=== PATIENT | male | born 1940 | race Caucasian/White ===

== ENCOUNTER → 2021-07-20 09:40 | Outpatient (CLI) | payer MEDICARE, SELFPAY ==
[2021-07-20 11:43] LABS: COVID19 -Nasal RAPID Negative (Negative)
== END ==
PROVIDERS: PCP Nurse Practitioner; Visit Provider Physician Assistant
DX: Z20.822 Contact with and (suspected) exposure to COVID-19 (principal)
CPT/HCPCS: 87635; C9803

== ENCOUNTER 2021-07-23 05:37 | Day surgery (SDC) | payer MEDICARE, OTHER, SELFPAY ==
[2021-07-16 09:37] VITALS: BMI 29.5
[2021-07-23] VITALS (13 sets, daily range): BP systolic 118–178; BP diastolic 71–107; PULSE 66–105; RESP 12–20; TEMP 35.9–36.5; O2SAT 91–98; BMI 29.4
--- NOTE | 2021-07-23 06:45 | DI.RAD.S_ITS ---
PROCEDURE: XR KNEE LT 1TO2V INDICATIONS: postop prosthesis placement TECHNIQUE: 2 view(s) of the knee acquired. COMPARISON: None. FINDINGS: Bones: Patient is status post knee joint arthroplasty. Hardware components are in expected positions. Visualized bony structures are intact. Soft tissues: Overlying postoperative changes are noted. IMPRESSION: Expected postsurgical change for left knee arthroplasty. Dictated by: Latanya Dillard MD, PhD on 07/23/2021 at 11:31 Approved by: Latanya Dillard MD, PhD on 07/23/2021 at 11:32
[2021-07-23] MEDS: LACTATED RINGERS 1,000 ML 42 ML IV ×2 (07:05→09:15)
[2021-07-23] MEDS: ACETAMINOPHEN 325 MG TABLET 975 MG PO (07:14)
[2021-07-23] MEDS: CELECOXIB 200 MG CAPSULE PO (07:14)
[2021-07-23] MEDS: PREGABALIN 75 MG CAPSULE PO (07:14)
--- NOTE | 2021-07-23 07:23 | SUR.PREOP ---
Informed Dr. Gentile and showed him patients sores and he said that he can have his surgery anyway.
--- NOTE | 2021-07-23 07:27 | P.OP_ITS ---
Operative Date/Time/Diagnoses Date of procedure: 07/23/21 Time of procedure: 09:38 Pre-op diagnosis: Left knee osteoarthritis Post-op diagnosis: same Procedure & Clinicians Procedure: Left total knee replacement Same procedure as scheduled: Yes Indications: The patient has had progressively worsening left knee pain with radiographic changes consistent with arthritis. Non-operative management has failed and the patient has requested total knee replacement. The risks, benefits and alternatives to surgery were discussed with the patient prior to proceeding. Risks discussed included, but were not limited to, failure to relieve pain, stiffness, infection, nerve damage, deep venous thrombosis, pulmonary embolism, stroke, coma, heart attack, permanent paralysis and , as well as the potential need for eventual revision of the prosthetic. Surgeon: Travis Gentile Electrical Maintenance Mechanic: Nia Narayanan Click Yes if Unassisted: No Anesthesia Type: General, Spinal and Local Operative Notes Findings: Severe medial and moderate patellofemoral osteoarthritis with relative preservation of the lateral compartment. Closure Type: primary Specimen(s): none sent Prosthetic devices, grafts, tissues, transplants, or devices: Implants used in this procedure were manufactured by the [employer] and [email or web address] and included the BCS II Journey total knee replacement with a size 7 cobalt chromium femur, size 7 non porous tibial base plate. A 9 mm cross-linked polyethylene tibial insert and a 41 mm oval Tayler II patella. Applied: implant(s) Estimated Blood Loss (mL): 25 Blood products transfused: none Tourniquet time (min): 50 Procedure in detail: The patient was seen in the pre-operative area, where the left knee was identified as the operative site and this was marked with my initials. The patient received pre-operative antibiotics, and was taken to the operating room and placed on the operative table in the supine position. After satisfactory anesthesia, a oil expeller out was performed. The left leg was encircled with a tourniquet about the proximal thigh, and the leg was prepared from the toes to the tourniquet with ChloroPrep in the usual fashion and draped through sterile drapes. The leg was elevated and exsanguinated with Eschmark bandage and the tourniquet inflated to 250 mmHg pressure. The knee was approached through an approximately 18 cm incision centered over the patella and carried into the knee through a medial parapatellar arthrotomy. The anterior osteophytes and soft tissues were removed. The rotational landmarks of [place]'s line and the transepicondylar axis were marked on the femur with electrocautery, and intramedullary guide holes for the femur and tibia were created. The distal femoral cut was made in 6 degrees of valgus using the intramedullary guide at +1 cut setting due to a mild preoperative flexion contracture. The proximal tibial cut was then made using the intramedullary guide, taking 9 mm of bone off the less involved side. The extension gap was checked and the rotation of the femoral component confirmed with the gap balancing blocks. The anterior, posterior and chamfer cuts were then made. The posterior osteophytes and soft tissues were then removed. The posterior capsule was injected with part of a mixture of 60 ml 0.25% Marcaine mixed with 20 ml Exparel and 4 mg of morphine for post-operative pain control. The remainder of this mixture was injected into the capsule and subcutaneous tissues during cement curing. The tibia was prepared with the rotation set by an extra medullary guide. Trial tibial and femoral components were then placed and the intercondylar notch cut through the femoral trial. Range of motion was 0-135 degrees, with good stability throughout the range. The patella was then cut to accommodate the patellar prosthetic. There was no need for a lateral release. The trials were then removed, and the femoral hole plugged with a bone plug. The bone was prepared with pulsatile lavage, and dried with a sponge. Cement was applied and the final prosthetics placed. Excess cement was removed during and after cement curing. After confirming there was no extruded cement posteriorly, the final tibial insert was placed. The knee was copiously irrigated and the tourniquet deflated. Hemostasis was obtained. The capsule was closed with interrupted # 2 polyester sutures. The subcutaneous layer was closed with 3-0 Vicryl, and the skin with a running 3-0 V-Lock suture and Dermabond. An Aquacel Ag dressing was applied and the patient was taken to recovery having tolerated the procedure well. Complications: none Post-operative Condition: stable Disposition: PACU Plan for aftercare: The patient will be maintained on a standard total knee replacement protocol with weight bearing as tolerated. The patient will receive aspirin and sequential compression devices for DVT prophylaxis. The patient will be discharged home when safe for the home environment.
--- NOTE | 2021-07-23 07:27 | PM.PREOP ---
Pre-operative Note COVID-19 COVID-19 status: Negative Result date/Date tested (Pos, Neg/Pending): 07/20/21 Interval Note History & Physical reviewed/Exam performed by Physician: Yes Changes to H&P: No
[2021-07-23] MEDS: CEFAZOLIN 1 GM VIAL 2 GM IV (08:09)
[2021-07-23] MEDS: TRANEXAMIC ACID 1,000 MG VIAL 1000 MG INJ ×2 (08:15→09:12)
--- NOTE | 2021-07-23 08:23 | SUR.OPER ---
Supine on padded OR bed. Pillow under head, arms secured on padded armboards <90 degree abduction. Safety belt across torso. Non-operative leg secured with tape over blanket over lower leg. Operative leg secured in [place] positioner.
[2021-07-23] MEDS: BUPIVACAINE 0.25% (PF) 60 ML, EPINEPHrine 0.3 MG INJ (08:34)
[2021-07-23] MEDS: BUPIVACAINE LIPOSOME 266 MG/20 ML VIAL INJ (08:34)
[2021-07-23] MEDS: MORPHINE 4 MG/ML INJ INJ (08:35)
--- NOTE | 2021-07-23 10:36 | SUR.PHASEI ---
Pt from OR at 0948 in bed after general spinal anesth. breathing unassisted. Placed on 1L NC for O2 sat 91%. SBAR report at bedside from Rn and Dr Daley. Pt transferred to room 215 awake, alert, denying pain and nausea, able to wiggle toes and. Bed in low position. Call light in reach. SBAR report to Erika FAITH.
[2021-07-23] MEDS: OXYCODONE IR 10 MG TABLET PO ×2 (11:39→15:48)
[2021-07-23] MEDS: LACTATED RINGERS 1,000 ML 100 ML IV (11:41)
--- NOTE | 2021-07-23 14:53 | PT.IIE ---
Current Diagnoses Unilateral primary osteoarthritis, left knee (07/23/21) Surgery Performed Operation Date: 07/23/21 07:45 Actual Procedures p Total Knee Arthroplasty(Left) - Travis Gentile MD Medical History (Last Updated 07/16/21 @ 09:48 by Claudia Sanchez RN) Actinic keratosis BPH (benign prostatic hyperplasia) Diverticulosis Former smoker Headache, migraine [place] (hard of hearing) Osteoarthritis Physical Therapy Inpatient Evaluation/Re-Eval M1 PT/OT-IP Prior Functional Status Start: 07/23/21 13:01 Freq: NEEDED Status: Discharge Protocol: Document 07/23/21 14:53 JG (Rec: 07/23/21 15:58 JG [id number]) Medical Review Prior Functional Status Medical History Reviewed Yes Diet/Fluid Consistency Regular Communication No limitations noted Mobility and Gait Medical reports note L knee pain during amb, transfers, functional movement. Pt reports he does not use any AD for home or community amb. Activities of Daily Living and IADL's No limitations noted Social History Household Members spouse Living Arrangements House Number of Floors (Floors) One Floor Number of Stairs To Enter/Railing? 5 stairs w/narrow bilateral rail or 2 stairs w/o rail to enter/exit house. 15 stairs w/ R rail to access basement and doesn't need to go to basement . Home Environment Standard Height Toilet,Tub/ Shower Home Equipment Four Wheel Walker,Hand Held Shower Employment Status Retired Additional Social History Comment Pt reports OP PT is scheduled. Pt's is able to provide care during recovery. M2 PT-IP Current Condition Start: 07/23/21 13:01 Freq: NEEDED Status: Discharge Protocol: Document 07/23/21 14:53 JG (Rec: 07/23/21 15:55 JG [id number]) Physical Therapy Current Condition Current Condition Evaluation Date 07/23/21 Treatment Diagnosis S/P L TKA, difficulty walking and transferring Onset Date 07/23/21 M3 PT-IP Subjective Start: 07/23/21 13:01 Freq: NEEDED Status: Discharge Protocol: Document 07/23/21 14:53 JG (Rec: 07/23/21 15:55 JG [id number]) Subjective Physical Therapy Visit Type Type Initial Evaluation Visit Start Time 14:04 Visit Stop Time 14:53 Total Visit Minutes 49 Notes SPT Jasmin was directly supervised by PT Faye Number of NUT ROASTER HELPER Visits 0 Physical Therapy Visit Comments Patient Comments Pt reports that he feels even better post-surgery compared to R TKA several years ago. Pt demostrated L knee ROM w/o PT prompt and denied pain at rest or with movement. Pt states that he would prefer to go home this afternoon or evening instead of staying overnight and his surgeron booked him for the earliest surgery timeslot to increase the chance of pt returning home same day. Pt's was in room upon arrival and participated in caregiver training re stair amb, ADL assist, pain management, FWW and 4WW. Pt reports he has 4WW at home, but has the means to obtain FWW if needed. Pt reports he liked amb with FWW compared to 4WW. Patient Goals Return home ROGEL[place], heal in 5 weeks compared to 6 for R TKA , amb w/o pain or AD Therapy Pain Assessment Pain Present Pain Present Denied Pain Location L knee Intensity 0 Scale Used pt denied pain at rest, AROM, amb, stairs, transfers M4 PT-IP Mobility and Gait Start: 07/23/21 13:01 Freq: NEEDED Status: Discharge Protocol: Document 07/23/21 14:53 J (Rec: 07/23/21 15:55 J [id number]) PT-Bed Mobility Assessment Rolling Type of Rolling Roll to Right Level of Assist Standby Assistance Supine to Sit Supine to Sit Standby Assistance,Bedrails PT-Transfer Assessment Sit to and From Stand Sit to and from Stand Contact Guard Assistance,1 Person Assistance,Use of Upper Extremities Equipment Transfer Assistive Device Gait Belt,Front Wheeled Walker ,4 Wheeled Walker Orthotic/Prosthetic Devices or Brace: No Transfers Transfer Destination Bed,Chair,Toilet Transfer Technique Stand Step Pivot Transfer Ability Level of Assist Contact Guard Assistance,1 Person Assistance,Use of Upper Extremities Comments Mobility Comments Pt successfully completed sit> stand CGA w/FWW on first attempt from EOB. Pt amb bed> toilet where he voided while in standing CGA w/FWW over toilet. Pt amb from toilet around room CGA w/FWW. Pt stand>sit to bedside chair CGA w/FWW. At this point, pt expressed desire to go home this afternoon or evening. Because of this, stair amb was determined to be important observation and training. Pt amb bedside chair>therapeutic stairs>3x3 6 inch stairs bilat rail step-to w/o FWW> therapeutic stairs>bedside chair CGA w/FWW and w/c follow . No rest in w/c was needed. 4WW was obtained and pt amb bedside chair>hallway>bedside chair CGA w/4WW. Gait Assessment Gait Gait Assistance Required: Contact Guard Assist,1 Person Assist Distance (Feet) 360 Able to Maintain Weight Bearing Status Yes During Gait Assistive Devices Assistive Device Gait Belt,Front Wheeled Walker ,4 Wheeled Walker Orthotic/Prosthetic Devices or Brace: No Gait Deviations General Gait Pattern Decreased Stride Length,Step- to Gait Comments Gait Comments See mobility comments. Mild decreased stride length. Step- to gait on stairs only. Stair Climbing Assessment Evaluation Level of Assist On Stairs Contact Guard Assistance Devices Stair Climbing Assistive Devices None,Left Railing,Right Railing Technique/Endurance Stair Climbing Direction Ascend and Descend Stair Climbing Technique Step to Step Number of Steps Climbed 3 Query Text: Stair Climbing Set # Repetitions (reps) 3 Comments Stair Climbing Comments 3x3 6-inch steps ascend/ descend on therapeutic stairs PT-Balance Assessment Sitting Balance and Reactions Static Sitting Balance Ability Normal Standing Balance and Reactions Static Standing Balance Ability Good Dynamic Standing Balance Ability Good Device Used FWW, 4WW M5 PT-IP Objective Assessments Start: 07/23/21 13:01 Freq: NEEDED Status: Discharge Protocol: Document 07/23/21 14:53 J (Rec: 07/23/21 15:55 J [id number]) Orientation Orientation/Cognition Level of Alertness Alert Orientation Name,Place,Situation Language Function Ability No Deficits Noted Safety Awareness Decreased Safety Awareness Memory Description No Deficits Noted Comments Verbalized awareness for safety precautions. Pt also verbalized strong desire to rehab quickly and demostrated high use of L knee during therapy session. Pt was receptive to modification of L knee use and demostrated ability to modify during session. Gross Range of Motion Upper Extremity ROM Assessment Within Functional Limits Lower Extremity ROM Assessment Left Impaired Impairments L knee s/p TKA. R knee s/pt TKA several years ago with no limitations. Strength Upper Extremity Strength Assessment Within Functional Limits Lower Extremity Strength Assessment Left Impaired Hip R 5/5 flex, L able to move into and hold hip flex position Knee R 5/5 flex and ext, L able to move into and hold flex and ext position Ankle R and L 5/5 DF and PF Comments Strength Comments SPT did not assess hip flex, knee flex and ext strength due to status post-surgery Coordination Assessment Gross Coordination Gross Coordination WNL Sensation Assessment Sensation Gross Sensation WNL Comments Sensation Comments Pt reports no LE impairments to sensation, feels same bilat Muscle Tone Muscle Tone WNL Yes M6 PT-IP Treatment Start: 07/23/21 13:01 Freq: NEEDED Status: Discharge Protocol: Document 07/23/21 14:53 JG (Rec: 07/23/21 15:55 JG [id number]) Physical Therapy Treatment Education Education Provided Precautions,Weight Bearing Status,Post-Op Packet,Safety M7 PT-IP Assessment and Plan Start: 07/23/21 13:01 Freq: NEEDED Status: Discharge Protocol: Document 07/23/21 14:53 JG (Rec: 07/23/21 15:55 JG [id number]) PT Summary Assessment and Plan Potential Rehabilitation Potential Good Status of Condition at Evaluation Evolving Summary Impairments ROM,Strength,Bed Mobility, Transfers,Gait Progress Towards Goals Progressing Toward Goals Assessment Summary Pt was 81 year old male who underwent L TKA this morning. Pt was sitting in bed with head of bed and knees elevated upon arrival. Pt's was in room as well. Pt was very pleasant and quite agreeable to participating in therapy session. Pt expressed desire to go to the bathroom and walk in hallway. Pt's gait was assessed with both FWW and 4WW . Pt was safe with 4WW, which he has at home, and was educated about obtaining FWW if he begins to place more upper extremity pressure through walker at home. Pt was able to actively move L knee through flex and ext without pain. Flex was moderately limited. Pt was able to hold hip flex, knee flex and ext against gravity. Pt was had full ankle dorsiflexion and plantarflexion strength. There were no limitations on strength or ROM on R LE. Pt was confident during transfers , amb, and stairs. Pt demostrated mild decreased step length and knee ext while amb which mildly effected gait efficiency. Pt reports that he has OP PT arranged and his will be able to care for him during recovery. Pt is safe to discharge home with assist once medically clear. Pt will require OP PT to maintain current L knee ROM and strength while as well as increase ROM and strength in order to safely amb home and in community indep without gait impairments. Goals Bed Mobility Goal Independent Transfer Goal Independent,Front Wheeled Walker Gait Goal Independent,Front Wheel Walker Gait Distance 250 Other Goals Stair amb SBA w/bilat rail 2x3 6-inch stairs w/o rest. Pt indep w/HEP. Days to Meet Goals 2 Frequency of Treatment Frequency Of Treatment Twice a Day Treatment Plan Physical Therapy Treatment Plan Bed Mobility Training,Transfer Training,Gait Training, Therapeutic Exercise,Post Op Education,Discharge Planning, Hot or Cold Pack Weight Bearing Status Weight Bearing Status Weight Bear as Tolerated Recommendations To Nursing Amount of Assist Needed 1 Person Assist Discharge Recommendations PT Discharge Recommendations Home with Assistance, Outpatient PT Equipment Needed for Home Before May need FWW. Pt has 4WW at Discharge home. Pt and caregiver educated on where to obtain FWW if needed. Transportation Needs at Discharge Private Vehicle Treatment was provided by Jasmin Jacome, SPT and supervised by Faye Campos, PT. I personally reviewed this note and agree with its contents.
[2021-07-23] MEDS: ACETAMINOPHEN 325 MG TABLET 650 MG PO (14:55)
[2021-07-23] MEDS: IBUPROFEN 400 MG TABLET PO (14:56)
--- NOTE | 2021-07-23 16:12 | PC.NURSE ---
Pt arrived from PACU at 1030, A&OX3 on RA. He is initially slightly numb in BLE's but full sensation quickly returns. He is able to bend L leg, voiding, and reports pain well controlled. SBP slightly elevated 160's-170's. IVF LR at 100 ml /hr. Patient attempted to eat general diet for lunch followed by emesis however he denied nausea. RN recommended to start with liquids and bland, light foods first. PT ambulating with patient this afternoon, and completing stairs, cleared for discharge from their standpoint. PA evaluating patient this afternoon and clearing him for discharge home. no further n/v. Pain medications given as scheduled and prn medications given for transportation. Pt verbalizes understanding of discharge instructions, incision care, activity restrictions, s/sx of infection as well as medications, and worsening symptoms. LUMP MACHINE OPERATOR escorted patient to private vehicle with this afternoon via w/chair with all belongings. Prescriptions escribed to [facility].
== END 2021-07-23 14:06 | disposition home or self-care (01) ==
LOC: OR 05:43 → AC 05:43
PROVIDERS: PCP Family Medicine; Referring Provider Family Medicine; Visit Provider Orthopaedic Surgery
PROC: 0SRD0JZ Replacement of Left Knee Joint with Synthetic Substitute, Open Approach (ICD-10-PCS; CPT 27447; principal; 2021-07-23 07:45)
DX: M17.12 Unilateral primary osteoarthritis, left knee (principal); I10 Essential (primary) hypertension; E78.5 Hyperlipidemia, unspecified
CPT/HCPCS: 27447; 73560; 97116; 97161; 97530; C1776; C9290; J0171; J0690; J1100; J2250; J2270; J2405; J2704; J3010

== ENCOUNTER → 2022-01-28 09:43 | Outpatient (CLI) | payer MEDICARE, OTHER, SELFPAY ==
[2021-07-23 11:14] VITALS: BMI 29.4
[2022-01-28 12:27] LABS: COVID19 -Nasal RAPID Negative (Negative)
== END ==
PROVIDERS: PCP Family Medicine; Visit Provider Surgery
DX: Z20.822 Contact with and (suspected) exposure to COVID-19 (principal); Z01.812 Encounter for preprocedural laboratory examination
CPT/HCPCS: 87635; C9803

== ENCOUNTER 2022-01-29 08:59 | Day surgery (SDC) | payer MEDICARE, OTHER, SELFPAY ==
[2021-07-23 11:14] VITALS: BMI 29.4
[2022-01-23 15:21] VITALS: BMI 30.4
[2022-01-29] VITALS (9 sets, daily range): BP systolic 107–169; BP diastolic 58–85; PULSE 55–64; RESP 12–16; TEMP 36.1–36.2; O2SAT 92–100; BMI 30.4
[2022-01-29] MEDS: LACTATED RINGERS 1,000 ML 84 ML IV ×2 (09:36→11:33)
--- NOTE | 2022-01-29 10:06 | PM.PREOP ---
Pre-operative Note COVID-19 COVID-19 status: Negative Result date/Date tested (Pos, Neg/Pending): 01/28/22 Interval Note History & Physical reviewed/Exam performed by Physician: Yes Changes to H&P: No ASA Class (for procedural sedation): II
[2022-01-29] MEDS: CEFAZOLIN 2 GM/20 ML SYRINGE IV (10:46)
--- NOTE | 2022-01-29 10:50 | SUR.OPER ---
Supine on padded OR bed, head on pillow, arms secured on padded arm boards at <90 degrees abduction, legs uncrossed, safety belt at thigh, tape over blanket over lower legs. Gel pad placed under bilateral heels.
[2022-01-29] MEDS: BUPIVACAINE 0.5% (PF) VIAL 30 ML INJ (10:58)
[2022-01-29] MEDS: LIDOCAINE 1% W/EPI 20 ML INJ (10:59)
--- NOTE | 2022-01-29 12:15 | PM.OP.1 ---
Operative Date/Time/Diagnoses Date of procedure: 01/29/22 Time of procedure: 12:15 Pre-op diagnosis: Right inguinal hernia Post-op diagnosis: other (Right direct and indirect inguinal hernia) Procedure & Clinicians Procedure: Open right inguinal hernia repair with mesh Same procedure as scheduled: Yes Surgeon: Yahir Santos Anesthesia Type: General Operative Notes Procedure in detail: Preoperative antibiotic was administered. The patient was brought to the operating room and placed on the table in supine position general anesthesia was induced. The right groin was prepped and draped in the normal fashion and a time-out was performed. Roughly 10 mL of local anesthetic were injected into the skin and subcutaneous adipose tissue over the right groin. A 6 cm incision was made over the right inguinal canal. Dissection was carried down through the subcutaneous adipose tissue. A bridging vein was cauterized. We exposed the external oblique aponeurosis in the direction of the fibers. Additional local was injected deep to the aponeurosis. A 15 blade scalpel was used to buck the external oblique aponeurosis. Metzenbaum scissors were used to carefully open the aponeurosis in the direction of the fibers taking care not to injure the underlying ilioinguinal nerve which was well seen and protected. We completely exposed the inguinal canal. The cord was dissected free from the inguinal ligament and floor of the inguinal canal and the external oblique aponeurosis was dissected off of the internal oblique taking care not to injure the hypogastric nerve. We encircled the cord with a [place] drain for retraction. We found a fat containing direct inguinal hernia as well as an indirect sac. The fatty contents of the direct hernia were reduced into the abdomen and the defect was closed with 2 interrupted 3-0 Prolene sutures. The sac was then dissected off the cord structures and reduced down into the abdomen along with a fatty cord lipoma. We then fashioned a piece of polypropylene mesh to fit the inguinal canal floor. The mesh was secured with multiple interrupted 3-0 Prolene sutures to the pubic tubercle and shelving edge of the inguinal ligament as well as to the conjoint tendon medially. We cut a slit in the mesh and overlapped the tails to recreate an internal ring and secured the medial tail to the inguinal ligament with additional sutures. We injected some more local into the fatty tissue in the inguinal canal and cord. Finally, we removed the [place] drain and closed the external oblique fascia with a running 3-0 Vicryl suture. Skin was closed with interrupted 3-0 Vicryl dermal sutures and a running 4 Monocryl subcuticular stitch. EBL 5 mL The patient was awakened and brought to recovery room. Post-operative Condition: stable Disposition: PACU
[2022-01-29] MEDS: OXYCODONE IR 5 MG TABLET PO (12:26)
[2022-01-29] MEDS: ACETAMINOPHEN 325 MG TABLET 650 MG PO (12:26)
== END 2022-01-29 13:01 | disposition home or self-care (01) ==
PROVIDERS: PCP Family Medicine; Referring Provider Surgery; Visit Provider Surgery
PROC: (CPT 49505; principal; 2022-01-29 10:15)
DX: K40.90 Unilateral inguinal hernia, without obstruction or gangrene, not specified as recurrent (principal); I10 Essential (primary) hypertension
CPT/HCPCS: 49505; J0690; J2704; J3010